=== PATIENT | female | born 1980 | race Caucasian/White ===

== ENCOUNTER 2016-11-10 21:37 | Emergency (ER) | payer OTHER ==
[~2016-11-10] VITALS: Ht 162.6 cm; Wt 84.3 kg
[2016-11-10] MEDS ORDERED: SODIUM CHLORIDE 0.9% 1,000ML IVBOLUS ONE (22:30)
[2016-11-10 22:36] LABS: DAU SCREEN DISCLAIMER
[2016-11-10 22:43] LABS: PATH.CAST-FLAG NOT PRESENT; SPERM-FLAG NOT PRESENT; SRC-FLAG NOT PRESENT; XTAL-FLAG NOT PRESENT; YLC-FLAG NOT PRESENT
[2016-11-10 23:00] LABS: ASPARTATE AMINO TRANSFERASE 20 U/L (15-37); BLOOD UREA NITROGEN 15 mg/dL (7-18)
[2016-11-10 23:18] VITALS: BP 116/61
[2016-11-11] MEDS ORDERED: SODIUM CHLORIDE 0.9% 1,000ML IVBOLUS ONE
[2016-11-11] MEDS ORDERED: METOCLOPRAMIDE 5 MG/ML, 2ML IVPush ONE
[2016-11-11] MEDS ORDERED: KETOROLAC 30 MG/1 ML IVPush ONE
[2016-11-11] MEDS ORDERED: DIPHENHYDRAMINE 50 MG/ML, 1ML IVPush ONE
[2016-11-11] MEDS ORDERED: KETOROLAC 30 MG/1 ML ONE (00:52)
[2016-11-11] MEDS ORDERED: DIPHENHYDRAMINE 50 MG/ML, 1ML ONE (00:52)
[2016-11-11] MEDS ORDERED: METOCLOPRAMIDE 5 MG/ML, 2ML ONE (00:52)
== END 2016-11-11 03:20 | disposition home or self-care (01) ==
LOC: ED 23:59
DX: G43.019 Migraine without aura, intractable, without status migrainosus (principal)
CPT/HCPCS: 36415; 70450; 80053; 80307; 81001; 82140; 85025; 93005; 96374; 96375; 99285; J1200; J1885; J2765; J7030